=== PATIENT | female | born 1935 | race Caucasian/White ===

== ENCOUNTER → 2016-11-22 | Outpatient (REF) ==
[~2016-11-22] MED LIST: ALEVE220 MG PO; COUMADIN 2MG2 MG/TAB PO; LEVAQUIN 5500 MG/TA1 PO; LOVENOX 8080 MG/0.8 SQ; NORCO 325 MG-51 TAB PO; ZYRTEC10 MG PO
[2016-11-22 19:19] LABS: TOTAL IRON BINDING CAPACITY 458 ug/dL (265-497)
[2016-11-22 19:45] LABS: FERRITIN 5 ng/mL (11-264)
== END ==
LOC: ZLAB.WCH 18:06
PROVIDERS: Nurse Practitioner Family
DX: Z01.89 Encounter for other specified special examinations (principal)

== ENCOUNTER → 2016-12-02 | Outpatient (REF) | LOC: ZLAB.WCH 20:01 | DX: Z01.89 Encounter for other specified special examinations (principal) ==

== ENCOUNTER → 2017-08-25 | Outpatient (REF) ==
[2017-08-25 16:41] LABS: IRON,SERUM 68 ug/dL (35-150)
[2017-08-25 16:50] LABS: TOTAL IRON BINDING CAPACITY 348 ug/dL (265-497)
[2017-08-25 17:15] LABS: FERRITIN 23 ng/mL (11-264)
== END ==
LOC: ZLAB.WCH 16:07
PROVIDERS: Nurse Practitioner Family
DX: Z01.89 Encounter for other specified special examinations (principal)

== ENCOUNTER → 2018-12-20 | Outpatient (CLI) | payer MEDICARE, OTHER | LOC: COL.RAD 14:33 | DX: M79.89 Other specified soft tissue disorders (principal) ==